=== PATIENT | male | born 1955 | race Hispanic/Latino ===

== ENCOUNTER → 2023-03-14 | Outpatient (CLI) | payer OTHER | END | disposition home or self-care (01) | LOC: SHCH 15:24 | PROVIDERS: ATTEND Student in an Organized Health Care Education/Training Program | DX: I11.9 Hypertensive heart disease without heart failure (principal); Z95.3 Presence of xenogenic heart valve | CPT/HCPCS: 93306 ==

== ENCOUNTER → 2023-09-25 | Outpatient (CLI) | payer OTHER ==
[~2023-09-25] MED LIST: IOHEXOL-350 75 ML VIAL IV ONE
== END | disposition home or self-care (01) ==
LOC: RAH 09:28
PROVIDERS: ATTEND Student in an Organized Health Care Education/Training Program
DX: I51.7 Cardiomegaly (principal); I26.99 Other pulmonary embolism without acute cor pulmonale; M47.815 Spondylosis without myelopathy or radiculopathy, thoracolumbar region
CPT/HCPCS: 71275; Q9967

== ENCOUNTER → 2023-12-25 | Outpatient (CLI) | payer OTHER | END | disposition home or self-care (01) | LOC: SHCH 11:18 | PROVIDERS: ATTEND Student in an Organized Health Care Education/Training Program | DX: I34.0 Nonrheumatic mitral (valve) insufficiency (principal); Z95.5 Presence of coronary angioplasty implant and graft | CPT/HCPCS: 93306 ==

== ENCOUNTER → 2024-01-21 | Outpatient (CLI) | payer OTHER | END | disposition home or self-care (01) | LOC: RAH 13:59 | PROVIDERS: ATTEND Family Medicine | DX: M47.27 Other spondylosis with radiculopathy, lumbosacral region (principal); M48.061 Spinal stenosis, lumbar region without neurogenic claudication; M53.86 Other specified dorsopathies, lumbar region; G93.89 Other specified disorders of brain; R51.9 Headache, unspecified | CPT/HCPCS: 70551; 72148 ==

== ENCOUNTER 2024-06-03 06:34 | Day surgery (SDC) | payer OTHER ==
[~2024-06-03] VITALS: Ht 177.8 cm; Wt 109.8 kg
[2024-06-03] VITALS (11 sets, daily range): BP systolic 116–148; BP diastolic 74–99; PULSE 52–60; RESP 15–18; TEMP 97.2–98.4
[~2024-06-03 06:34] MED LIST changes: +AEC81 PO; +CHOL100046 PO; -IOHEXOL-350 75 ML VIAL IV ONE; +LEVO25CA4 PO; +OMEG100033 PO; +OMEP20CA12 PO; +PRAV40TA3 PO
[2024-06-03] MEDS: 0.9%NACL 1000ML 1,000 ML IV ONE (08:30)
[2024-06-03] MEDS: ceFAZolin SODIUM 1 GM VIAL ONE (08:37)
[2024-06-03] MEDS ORDERED: proPOFol 10 MG/ML 20ML VIAL IV ONE ×2 (09:29)
== END 2024-06-03 11:02 | disposition home or self-care (01) ==
LOC: ENDO 06:34 → DAH 06:34 → ENDO 11:02
PROVIDERS: ATTEND Internal Medicine Gastroenterology
DX: R14.0 Abdominal distension (gaseous) (principal); D12.5 Benign neoplasm of sigmoid colon; K29.50 Unspecified chronic gastritis without bleeding; D12.8 Benign neoplasm of rectum; R12 Heartburn; D13.1 Benign neoplasm of stomach; Z86.010 Personal history of colon polyps; K92.1 Melena; I86.8 Varicose veins of other specified sites; G47.33 Obstructive sleep apnea (adult) (pediatric); K57.30 Diverticulosis of large intestine without perforation or abscess without bleeding; K21.9 Gastro-esophageal reflux disease without esophagitis; E78.5 Hyperlipidemia, unspecified; Z90.49 Acquired absence of other specified parts of digestive tract; Z79.82 Long term (current) use of aspirin; Z79.899 Other long term (current) drug therapy
CPT/HCPCS: 43251; 43239; 45385; J0690; J7030 ×2; J2704 ×2; A4620; A4215; A4223; A7002; A4222; A4221; A4663; A4606; 45380; J3490

== ENCOUNTER 2025-06-01 06:07 | Day surgery (SDC) | payer OTHER ==
[2025-06-01] VITALS (10 sets, daily range): BP systolic 93–128; BP diastolic 49–81; PULSE 55–63; RESP 15–18; TEMP 97.5–97.7
[~2025-06-01] VITALS: Ht 177.8 cm; Wt 108.9 kg
[~2025-06-01 06:07] MED LIST changes: -LEVO25CA4 PO; +LEVO25CA5 PO; -PRAV40TA3 PO; +PRAV40TA62 PO
[2025-06-01] MEDS: 0.9%NACL 1000ML 1,000 ML IV ONE (06:36)
[2025-06-01] MEDS ORDERED: FINA5TAB41 PO (06:40)
[2025-06-01] MEDS ORDERED: DOCU100C33 PO (06:40)
[2025-06-01] MEDS ORDERED: LIDOCAINE HCL 1% 20 ML VIAL ONE (07:46)
--- NOTE | 2025-06-01 09:10 | NUR ---
BOTH PT AND SPOUSE GIVEN VERBAL AND WRITTEN DISCHARGE INSTRUCTIONS IV REMOVED SITE ASYMPTOMATIC. PT TAKEN OUT VIA WHEELCHAIR SPOUSE DRIVING
== END 2025-06-01 09:15 | disposition home or self-care (01) ==
LOC: DAH 06:07 → ENDO 06:07
PROVIDERS: ATTEND Internal Medicine Gastroenterology
DX: K59.04 Chronic idiopathic constipation (principal); K63.5 Polyp of colon; K57.30 Diverticulosis of large intestine without perforation or abscess without bleeding; K64.8 Other hemorrhoids; K44.9 Diaphragmatic hernia without obstruction or gangrene; K29.70 Gastritis, unspecified, without bleeding; K31.A11 Gastric intestinal metaplasia without dysplasia, involving the antrum; R14.0 Abdominal distension (gaseous); K21.9 Gastro-esophageal reflux disease without esophagitis; E78.5 Hyperlipidemia, unspecified; K92.1 Melena; I86.8 Varicose veins of other specified sites; E66.9 Obesity, unspecified; G47.33 Obstructive sleep apnea (adult) (pediatric); Z86.0100 Personal history of colon polyps, unspecified; Z68.35 Body mass index [BMI] 35.0-35.9, adult; Z90.49 Acquired absence of other specified parts of digestive tract; Z98.890 Other specified postprocedural states; Z79.82 Long term (current) use of aspirin; Z79.899 Other long term (current) drug therapy
CPT/HCPCS: 45380; 45385; 43239; J7030; J2704; A4620; A4215; J3490